=== PATIENT | male | born 1965 | race African-American/Black ===

== ENCOUNTER 2021-10-15 00:04 | Emergency (ER) | payer BC, MEDICAID ==
[~2021-10-15] VITALS: Ht 167.6 cm; Wt 64.0 kg
[2021-10-15 00:52] LABS: EOSINOPHILS % 1.9 % (0.0-5.0); HEMATOCRIT. 38.4 % (42.0-52.0); HEMOGLOBIN. 12.7 g/dL (14.0-18.0); LYMPHOCYTES % 32.1 % (20.0-50.0); MEAN CORPUSCULAR HEMOGLOBIN 30.4 pg (28.0-32.0); MEAN CORPUSCULAR VOLUME 91.5 fL (80.0-94.0); MONOCYTES % 10.4 % (2.0-8.0); NEUTROPHILS % 54.6 % (40.0-76.0); PLATELET 320 x1000/uL (130-400); RED BLOOD CELL COUNT 4.19 mill/uL (4.7-6.1); RED CELL DISTRIBUTION WIDTH 15.1 % (11.6-14.6)
[2021-10-15 02:06] LABS: CHLORIDE 109 mEq/L (98-107); ETHANOL BLOOD < 10 mg/dL
[2021-10-15] MEDS ORDERED: ACETAMINOPHEN 500MG TABLET PO ONE (03:15)
[2021-10-15 03:19] VITALS: BP 112/85
== END 2021-10-15 03:23 | disposition home or self-care (01) ==
LOC: ER 00:04
DX: G89.29 Other chronic pain (principal); N17.9 Acute kidney failure, unspecified; Z72.89 Other problems related to lifestyle
CPT/HCPCS: 36415; 80053; 80320; 85025; 99283; G0480